=== PATIENT | female | born 1960 | race Caucasian/White ===

== ENCOUNTER 2019-02-28 14:16 | Emergency (ER) | payer MEDICARE, MEDICAID ==
[2019-02-28 15:07] LABS: CHLORIDE,CL 108 mmol/L (98-107); SODIUM,NA 149 mmol/L (136-145)
--- NOTE | 2019-02-28 15:31 | EDM.PDOC ---
ED HPI GENERAL MEDICAL PROBLEM - General Chief Complaint: General Stated Complaint: chest pain, right arm pain Time Seen by Provider: 02/28/19 14:20 Source of Information: Reports: Patient, EMS, [facility] Records History Limitations: Reports: No Limitations - History of Present Illness INITIAL COMMENTS - FREE TEXT/NARRATIVE: Pt with right upper chest pain that goes down her arm and leg Pain down arm and leg is patchy and not continuous No fever No N/V/D has hx/o CVA with left sided weakness No left sided chest pain No abdominal pain No SOB No trauma Was given NTG and ASA at [place] without change in chest pain Onset: Today, Sudden Duration: Hour(s): Location: Reports: Chest Quality: Reports: Throbbing Severity: Moderate Associated Symptoms: Reports: No Other Symptoms Treatments [employer]: Reports: Aspirin (NTG) - Related Data Allergies Allergy/AdvReac Type Severity Reaction Status Date / Time aspirin Allergy Cannot Verified 02/28/19 14:44 Remember carbamazepine Allergy Cannot Verified 02/28/19 14:44 Remember cetirizine Allergy Hives Verified 02/28/19 14:44 codeine Allergy Hives Verified 02/28/19 14:44 gabapentin Allergy Hives Verified 02/28/19 14:44 hydrocodone Allergy Hives Verified 02/28/19 14:44 propoxyphene Allergy Hives Verified 02/28/19 14:44 Sulfa (Sulfonamide Allergy Cannot Verified 02/28/19 14:44 Antibiotics) Remember tiotropium Allergy Cannot Verified 02/28/19 14:44 Remember tramadol Allergy Hives Verified 02/28/19 14:44 [place] Allergy Mouth Uncoded 02/28/19 14:44 Sores, Blisters Home Meds: Home Meds ARIPiprazole [Abilify] 2 mg PO DAILY 02/28/19 [History] Aspirin 81 mg PO DAILY 02/28/19 [History] Bisacodyl [Dulcolax] 2 tab PO DAILY PRN 02/28/19 [History] Clopidogrel [Plavix] 75 mg PO DAILY 02/28/19 [History] Cyanocobalamin (Vitamin B-12) [Vitamin B-12] 1,000 mcg PO DAILY 02/28/19 [ History] Ergocalciferol (Vitamin D2) [Vitamin D2] 50,000 unit PO Q7D 02/28/19 [History] Ezetimibe [Zetia] 10 mg PO BEDTIME 02/28/19 [History] Fluticasone Propionate [Flonase] 1 spray NASBOTH BID 02/28/19 [History] Furosemide 40 mg PO DAILY 02/28/19 [History] Isosorbide Mononitrate [Imdur] 30 mg PO DAILY 02/28/19 [History] Lidocaine [Lidoderm] 1 patch TOP DAILY 02/28/19 [History] Lisinopril [Zestril] 30 mg PO DAILY 02/28/19 [History] Mirabegron [Myrbetriq] 50 mg PO DAILY 02/28/19 [History] Rosuvastatin Calcium 40 mg PO DAILY 02/28/19 [History] Sertraline HCl 200 mg PO DAILY 02/28/19 [History] busPIRone HCl [Buspirone HCl] 15 mg PO DAILY 02/28/19 [History] metFORMIN [Glucophage] 4 tab PO DAILY 02/28/19 [History] traZODone HCl [Trazodone HCl] 50 mg PO BEDTIME 02/28/19 [History] ED ROS GENERAL - Review of Systems Review Of Systems: See Below HEENT: Reports: No Symptoms Respiratory: Reports: No Symptoms Cardiovascular: Reports: Chest Pain GI/Abdominal: Reports: No Symptoms ED EXAM, GENERAL - Physical Exam Exam: See Below Exam Limited By: No Limitations General Appearance: No Apparent Distress Throat/Mouth: Normal Oropharynx Neck: Supple Respiratory/Chest: Lungs Clear Cardiovascular: Regular Rate, Rhythm GI/Abdominal: Soft, Non-Tender Extremities: Pedal Edema Neurological: Alert, Oriented, Other (Chronic left sided deficeits) EKG INTERPRETATION Rhythm: NSR Course - Orders/Labs/Meds Orders: Active Orders 24 hr Category Date Time Status EKG Documentation Completion [RC] ASDIRECTED Care 02/28/19 14:21 Active Chest 1V Frontal [CR] Stat Exams 02/28/19 14:21 Taken Labs: Laboratory Tests 02/28/19 02/28/19 Range/Units 14:40 14:40 WBC 10.1 (4.0-10.2) K/uL RBC 3.98 (3.77-5.09) M/uL Hgb 11.4 L (11.7-15.5) g/dL Hct 36.3 (34.0-46.0) % MCV 91.2 (84.0-98.0) fL MCH 28.6 (28.2-33.3) pg MCHC 31.4 L (31.7-36.0) g/dL RDW 14.7 H (11.2-14.1) % Plt Count 218 (150-350) K/uL Neut % (Auto) 69.8 (45.0-80.0) % Lymph % (Auto) 21.2 (10.0-50.0) % [place] % (Auto) 7.1 (2.0-14.0) % Eos % (Auto) 1.5 (0.0-5.0) % Baso % (Auto) 0.4 (0.0-2.0) % Neut # (Auto) 7.06 H (1.40-7.00) K/uL Lymph # (Auto) 2.15 (0.50-3.50) K/uL [place] # (Auto) 0.72 (0.00-1.00) K/uL Eos # (Auto) 0.15 (0.00-0.50) K/uL Baso # (Auto) 0.04 (0.00-0.20) K/uL Sodium 149 H (136-145) mmol/L Potassium 3.5 (3.5-5.1) mmol/L Chloride 108 H (98-107) mmol/L Carbon Dioxide 32.0 (21.0-32.0) mmol/L BUN 24 H (7-18) mg/dL Creatinine 0.82 (0.51-1.17) mg/dL Est Cr Clr Drug Dosing TNP Estimated GFR (MDRD) > 60 mL/min Glucose 119 H (74-106) mg/dL Calcium 8.7 (8.5-10.1) mg/dL Total Bilirubin 0.2 (0.2-1.0) mg/dL AST 17 (15-37) U/L ALT 32 (12-78) U/L Alkaline Phosphatase 66 (46-116) IU/L Troponin I 0.000 (0.000-0.056) ng/mL Total Protein 6.8 (6.4-8.2) g/dL Albumin 3.2 L (3.4-5.0) g/dL - Re-Assessments/Exams Free Text/Narrative Re-Assessment/Exam: 02/28/19 15:29 Pt stable in ER See lab and CXR Departure - Departure Time of Disposition: 15:30 Disposition: DC/Tfer to [facility] Clinical Impression: Atypical chest pain - Discharge Information Instructions: Nonspecific Chest Pain Referrals: Aj Pascual MD [Primary Care Provider] - Additional Instructions: Follow up in clinic - My Orders Last 24 Hours: My Active Orders 02/28/19 14:21 EKG Documentation Completion [RC] ASDIRECTED Chest 1V Frontal [CR] Stat - Assessment/Plan Last 24 Hours: My Active Orders 02/28/19 14:21 EKG Documentation Completion [RC] ASDIRECTED Chest 1V Frontal [CR] Stat
== END 2019-02-28 17:01 ==
LOC: LL.ED 14:16
DX: R07.89 Other chest pain (principal); Z88.6 Allergy status to analgesic agent; Z88.5 Allergy status to narcotic agent; Z88.2 Allergy status to sulfonamides; Z79.82 Long term (current) use of aspirin; Z79.899 Other long term (current) drug therapy; Z79.02 Long term (current) use of antithrombotics/antiplatelets
CPT/HCPCS: 36415; 71045; 80053; 84484; 85025; 93005; 99285-25

== ENCOUNTER 2019-04-09 01:43 | Emergency (ER) | payer MEDICARE, MEDICAID ==
--- NOTE | 2019-04-09 02:09 | EDM.PDOC ---
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 Discharge Information *PRESCRIPTION DRUG MONITORING PROGRAM REVIEWED*: Not Applicable *COPY OF PRESCRIPTION DRUG MONITORING REPORT IN PATIENT ANABELA: Not Applicable Prescriptions: Magnesium Oxide 400 mg PO DAILY #30 tab Referrals: Aj Pascual MD [Primary Care Provider] - Forms: ED Department Discharge Additional Instructions: 1. Update regular provider in a.m. concerning today's emergency room visit. 2. Recommend repeat CK, CK-MB, troponin I, BNP, magnesium level, and basic metabolic panel be repeated in one week 3. Notify your regular provider that one dose of IV Lasix and an additional oral potassium chloride were given this evening secondary to some borderline CHF with further instructions for possible increase of her current Lasix therapy. 4. Notify regular provider concerning borderline bradycardia in the mid-50s during today's ER evaluation with possible adjustment of her Lopressor therapy. 5. Notify regular provider concerning her mild hypomagnesemia with initiation of magnesium oxide therapy 6., Consult with regular provider concerning possible initiation of a bowel/ constipation program, including regularly scheduled medications, secondary to significant constipation diagnosed during today's visit with magnesium citrate and MiraLAX given in the emergency room today 7. Immediately after this visit verify that your cellular telephone's voicemail has been activated and is empty. Also verify that your home telephone 's answering machine is operating properly and has space to receive messages. Note that it is sometimes necessary for us to be able to contact you at a later date to discuss your medical care. 8. Please remember that we are ALWAYS here for you and want to answer any questions you may have. Feel free to call the hospital any time and we call you back AMP[facility]. 9. Discuss with regular provider possible initiation of O2 therapy with naps and at bedtime secondary to some mild hypoxia noted during emergency room evaluation while sleeping with O2 sat of 85-88% at that time. Note history of sleep apnea with patient not tolerating CPAP in the past. Sepsis Event Note - Evaluation Sepsis Screening Result: No Definite Risk - Focused Exam Vital Signs: Vital Signs Temp Pulse Resp BP Pulse Ox 04/09/19 06:01 62 16 160/91 H 95 04/09/19 05:46 60 12 146/75 H 92 L 04/09/19 05:31 54 L 12 147/74 H 93 L 04/09/19 05:16 55 L 11 L 159/81 H 94 L 04/09/19 05:01 55 L 158/71 H 04/09/19 04:46 55 L 10 L 149/72 H 99 04/09/19 04:31 54 L 11 L 119/70 98 04/09/19 04:20 96 04/09/19 04:18 53 L 11 L 154/73 H 98 04/09/19 04:10 85 L 04/09/19 04:01 57 L 17 168/71 H 96 04/09/19 03:46 59 L 17 153/70 H 91 L 04/09/19 03:31 56 L 16 137/78 92 L 04/09/19 03:16 58 L 13 150/76 H 95 04/09/19 03:01 57 L 17 141/69 H 92 L 04/09/19 02:46 61 14 144/70 H 92 L 04/09/19 02:32 58 L 134/74 92 L 04/09/19 02:15 61 93 L 04/09/19 02:00 61 137/76 93 L 04/09/19 01:49 36.8 C 62 16 150/75 H 96 Date Exam was Performed: 04/09/19 Time Exam was Performed: 10:34 - Problem List & Annotations (1) Abdominal pain SNOMED Code(s): 75319945 Code(s): R10.9 - UNSPECIFIED ABDOMINAL PAIN Status: Acute Priority: High Annotation/Comment:: Two-week history of nonspecific abdominal pain with worsening symptoms this evening. Note significant constipation by today's x- rays. No evidence of acute GI bleed, etc. with negative Hemoccult as above. MiraLAX and magnesium citrate given to the patient prior to discharge with bowel /constipation program recommended as per discharge instructions. High-dose IV Pepcid and IV Protonix given as GI prophylaxis. Qualifiers: Abdominal location: lower abdomen, unspecified Qualified Code(s): R10.30 - Lower abdominal pain, unspecified (2) CHF (congestive heart failure) SNOMED Code(s): 90874833 Code(s): I50.9 - HEART FAILURE, UNSPECIFIED Status: Acute Priority: Medium Annotation/Comment:: Nonspecific chest pain earlier today with known coronary artery disease, however no direct evidence of other true anginal type symptoms. Borderline CHF secondary to mildly elevated BNP, however chest x-ray did and clinical exam did not show any significant CHF. IV Lasix and oral potassium given in the emergency room with close follow-up by her regular provider as per discharge instructions. No chest pain prior to arrival or during emergency room care with chest pain protocol not initiated in the emergency room. Qualifiers: Heart failure type: unspecified Heart failure chronicity: acute Qualified Code(s): I50.9 - Heart failure, unspecified (3) Constipation SNOMED Code(s): 06512500 Code(s): K59.00 - CONSTIPATION, UNSPECIFIED Status: Acute Priority: High Annotation/Comment:: As above Qualifiers: Constipation type: slow transit constipation Qualified Code(s): K59.01 - Slow transit constipation (4) Coronary artery disease SNOMED Code(s): 17991767 Code(s): I25.10 - ATHSCL HEART DISEASE OF [place] CORONARY ARTERY W/O ANG PCTRS Status: Chronic Priority: Medium Annotation/Comment:: As above Qualifiers: Coronary Disease-Associated Artery/Lesion type: [place] artery [place] vs. transplanted heart: [place] heart Associated angina: without angina Qualified Code(s): I25.10 - Atherosclerotic heart disease of [place] coronary artery without angina pectoris (5) Diabetes mellitus SNOMED Code(s): 40242855 Code(s): E11.9 - TYPE 2 DIABETES MELLITUS WITHOUT COMPLICATIONS Status: Chronic Priority: Medium Annotation/Comment:: Weight Loss in moderation advisable. Qualifiers: Diabetes mellitus type: type 2 Diabetes mellitus emt intermediate insulin use: without emt intermediate use Diabetes mellitus complication status: with kidney complications Diabetes mellitus complication detail: with chronic kidney disease Chronic kidney disease stage: stage 2 (mild) Qualified Code(s): E11.22 - Type 2 diabetes mellitus with diabetic chronic kidney disease; N18.2 - Chronic kidney disease, stage 2 (mild) (6) Hypomagnesemia SNOMED Code(s): 487948127 Code(s): E83.42 - HYPOMAGNESEMIA Status: Acute Priority: Medium Onset Date: 04/09/19 Annotation/Comment:: Magnesium oxide therapy to be initiated with close follow-up by regular provider. This will also be beneficial for her chronic constipation. (7) Peptic reflux disease SNOMED Code(s): 336856384 Code(s): K21.9 - GASTRO-ESOPHAGEAL REFLUX DISEASE WITHOUT ESOPHAGITIS Status: Chronic Priority: Medium Annotation/Comment:: As above. Otherwise stable by history. (8) Anemia SNOMED Code(s): 630616666 Code(s): D64.9 - ANEMIA, UNSPECIFIED Status: Chronic Priority: Medium Annotation/Comment:: Stable anemia based on review of our medical records. No evidence of acute bleeding, etc. as above. Qualifiers: Anemia type: B12 deficiency Vitamin B12 deficiency anemia type: unspecified B12 deficiency Qualified Code(s): D51.9 - Vitamin B12 deficiency anemia, unspecified (9) Sleep apnea SNOMED Code(s): 25454974 Code(s): G47.30 - SLEEP APNEA, UNSPECIFIED Status: Chronic Priority: High Annotation/Comment:: She apparently did not tolerated CPAP in the past, however she did have home O2 prior to admission to the [facility] by her history. Some mild hypoxia noted while the patient was napping and sleeping in the emergency room. Nocturnal O2 advisable especially in light of her history of coronary artery disease, etc. as per discharge instructions. Qualifiers: Sleep apnea type: unspecified type Qualified Code(s): G47.30 - Sleep apnea , unspecified (10) Hyperlipidemia SNOMED Code(s): 29843758 Code(s): E78.5 - HYPERLIPIDEMIA, UNSPECIFIED Status: Chronic Priority: High Annotation/Comment:: Morbid obesity. Continue current medications. Weight loss in moderation advisable. Qualifiers: Hyperlipidemia type: unspecified Qualified Code(s): E78.5 - Hyperlipidemia , unspecified (11) Hypertension SNOMED Code(s): 83795535 Code(s): I10 - ESSENTIAL (PRIMARY) HYPERTENSION Status: Chronic Priority : Medium Annotation/Comment:: Somewhat elevated in the emergency room. Note sleep apnea as above. Further medication evaluation by her regular provider as per discharge instructions. Qualifiers: Hypertension type: essential hypertension Qualified Code(s): I10 - Essential (primary) hypertension (12) Hypoalbuminemia SNOMED Code(s): 599136425 Code(s): E88.09 - [facility] DISORDERS OF PLASMA-PROTEIN METABOLISM, NEC Status: Chronic Priority: Medium Onset Date: 02/28/19 Annotation/Comment:: Observe for now. Note morbid obesity. - Problem List Review Problem List Initiated/Reviewed/Updated: Yes - My Orders Last 24 Hours: My Active Orders 04/09/19 02:10 Oxygen Therapy, ED [RC] PRN Abdomen Series w Chest 1V [CR] Stat Obtain Past Medical Record [OM.PC] Urgent Peripheral IV Insertion Adult [OM.PC] Stat Resuscitation Status Stat 04/09/19 02:11 Peripheral IV Care [RC] . DIRECTED 04/09/19 02:17 EKG Documentation Completion [RC] ASDIRECTED 04/09/19 02:23 Bladder Scan [RC] ASDIRECTED 04/09/19 02:30 CULTURE URINE [RM] Stat 04/09/19 03:00 Cardiac Monitoring [RC] . DIRECTED - Assessment/Plan Last 24 Hours: My Active Orders 04/09/19 02:10 Oxygen Therapy, ED [RC] PRN Abdomen Series w Chest 1V [CR] Stat Obtain Past Medical Record [OM.PC] Urgent Peripheral IV Insertion Adult [OM.PC] Stat Resuscitation Status Stat 04/09/19 02:11 Peripheral IV Care [RC] . DIRECTED 04/09/19 02:17 EKG Documentation Completion [RC] ASDIRECTED 04/09/19 02:23 Bladder Scan [RC] ASDIRECTED 04/09/19 02:30 CULTURE URINE [RM] Stat 04/09/19 03:00 Cardiac Monitoring [RC] . DIRECTED Assessment:: As above Plan: As above. Extensive precautions were given to the patient, who is in agreement with the treatment plan. See Patient Instructions for further treatment and plan. Emergency room note will be submitted to [facility]. Note delayed discharge from this facility without sequelae secondary to the [facility] having problems obtaining transportation.
[2019-04-09] MEDS ORDERED: Pantoprazole 40 MG Vial IVPUSH ONE (02:10)
[2019-04-09] MEDS ORDERED: Famotidine 20 MG/2 ML SDV IVPUSH ONE (02:10)
[2019-04-09] MEDS: Sodium Chloride 0.9% 10 ML Syringe FLUSH PRN ×2 (02:37→06:03)
[2019-04-09 03:06] LABS: CHLORIDE,CL 108 mmol/L (98-107); SODIUM,NA 146 mmol/L (136-145)
[2019-04-09] MEDS ORDERED: Polyethylene Glycol 3350 Powder 17 GM Packet PO ONE (03:39)
[2019-04-09] MEDS ORDERED: Magnesium Citrate Solution 296 ML Bottle PO ONE (03:39)
[2019-04-09] MEDS ORDERED: Furosemide 40 MG/4 ML VIAL IVPUSH ONE (03:39)
[2019-04-09] MEDS ORDERED: Potassium Chloride 20 MEQ Tab.ER PO ONE (03:40)
== END 2019-04-09 06:20 ==
LOC: LL.ED 01:43
DX: K21.9 Gastro-esophageal reflux disease without esophagitis (principal); E83.42 Hypomagnesemia; R10.30 Lower abdominal pain, unspecified; K59.01 Slow transit constipation; I25.10 Atherosclerotic heart disease of native coronary artery without angina pectoris; E11.22 Type 2 diabetes mellitus with diabetic chronic kidney disease; I13.0 Hypertensive heart and chronic kidney disease with heart failure and stage 1 through stage 4 chronic kidney disease, or unspecified chronic kidney disease; I50.9 Heart failure, unspecified; N18.2 Chronic kidney disease, stage 2 (mild); D51.9 Vitamin B12 deficiency anemia, unspecified; G47.30 Sleep apnea, unspecified; E78.5 Hyperlipidemia, unspecified; H91.93 Unspecified hearing loss, bilateral; E78.00 Pure hypercholesterolemia, unspecified; I25.2 Old myocardial infarction; J45.909 Unspecified asthma, uncomplicated; E11.42 Type 2 diabetes mellitus with diabetic polyneuropathy; I69.354 Hemiplegia and hemiparesis following cerebral infarction affecting left non-dominant side; F41.9 Anxiety disorder, unspecified; F32.9 Major depressive disorder, single episode, unspecified; M79.7 Fibromyalgia; R56.9 Unspecified convulsions; I69.322 Dysarthria following cerebral infarction; E66.9 Obesity, unspecified; Z88.6 Allergy status to analgesic agent; Z88.8 Allergy status to other drugs, medicaments and biological substances; Z88.5 Allergy status to narcotic agent; Z88.2 Allergy status to sulfonamides; Z91.018 Allergy to other foods; Z79.02 Long term (current) use of antithrombotics/antiplatelets; Z79.899 Other long term (current) drug therapy; Z79.82 Long term (current) use of aspirin; Z79.84 Long term (current) use of oral hypoglycemic drugs; Z95.5 Presence of coronary angioplasty implant and graft
CPT/HCPCS: 36415; 51798; 74022; 80053; 81001; 82150; 82272; 82550; 82553; 83605; 83690; 83735; 83880; 84484; 84550; 85025; 85610; 85730; 87086; 93005; 93010; 96374; 96375; 99284; 99285-25; A9270-GY; C9113; J1940; J3490

== ENCOUNTER 2022-08-19 09:45 | Day surgery (SDC) | payer MEDICARE, MEDICAID ==
[~2022-08-19 09:45] MED LIST: Lactated Ringers 1,000 ML IV SCH; Midazolam 1 MG/ML 2 ML SDV ONE; Propofol 200 MG/20 ML SDV ONE; Sodium Chloride 0.9% 10 ML Syringe FLUSH PRN
== END 2022-08-19 12:41 | disposition home or self-care (01) ==
LOC: LL.SDS 09:45
PROVIDERS: ATTEND Surgery
DX: D51.3 Other dietary vitamin B12 deficiency anemia (principal); F41.8 Other specified anxiety disorders; I63.89 Other cerebral infarction; J45.20 Mild intermittent asthma, uncomplicated; I10 Essential (primary) hypertension; K21.9 Gastro-esophageal reflux disease without esophagitis; G47.39 Other sleep apnea; E66.01 Morbid (severe) obesity due to excess calories; E78.00 Pure hypercholesterolemia, unspecified; I25.110 Atherosclerotic heart disease of native coronary artery with unstable angina pectoris; Z79.899 Other long term (current) drug therapy; Z79.82 Long term (current) use of aspirin; Z88.6 Allergy status to analgesic agent; Z88.2 Allergy status to sulfonamides; Z88.5 Allergy status to narcotic agent; Z88.8 Allergy status to other drugs, medicaments and biological substances; Z98.890 Other specified postprocedural states; Z90.49 Acquired absence of other specified parts of digestive tract; Z68.41 Body mass index [BMI] 40.0-44.9, adult
CPT/HCPCS: 00812; 82947; J2250; J2704; J7120